=== PATIENT | male | born 1970 | race Caucasian/White ===

== ENCOUNTER 2016-07-16 05:41 | Inpatient (IN) | payer OTHER ==
[~2016-07-16] VITALS: Ht 190.5 cm; Wt 93.5 kg
[~2016-07-16 05:41] MED LIST: ASPI-825 PO; CARV3 PO; FOLI1CAP2 PO; FOLI1TAB15 PO; LISI-622 PO; SEVEC800 PO
[2016-07-16] MEDS ORDERED: ASPIRIN 81 MG EC TABLET PO ONE (06:30)
[2016-07-16] MEDS ORDERED: NITROGLYCERIN 2% (1 GM=INCH) PACKET TP ONE (06:30)
[2016-07-16] MEDS ORDERED: ASPIRIN 81 MG CHEWABLE TABLET PO ONE ×2 (06:45)
[2016-07-16 06:46] LABS: BASOPHILS # (AUTO) 0.03 K/uL (0.00-0.20); BASOPHILS % (AUTO) 0.5 % (0.0-2.0); EOSINOPHILS # (AUTO) 0.31 K/uL (0.00-0.70); EOSINOPHILS % (AUTO) 4.09 % (1.0-6.0); HEMATOCRIT 47.6 % (41-53); HEMOGLOBIN 15.4 g/dL (13.5-17.5); LYMPHOCYTES # (AUTO) 0.7 K/uL (1.0-4.8); LYMPHOCYTES % (AUTO) 9.5 % (22.0-44.0); MEAN CORPUSCULAR HEMOGLOBIN 31.7 pg (26.0-34.0); MEAN CORPUSCULAR HGB CONC 32.4 G/dL (31.0-37.0); MEAN CORPUSCULAR VOLUME 98 fL (80-100); MONOCYTES # (AUTO) 0.4 K/uL (0.1-1.0); PLATELET COUNT (AUTO) 125 K/uL (150-450); RED BLOOD CELL COUNT(AUTO) 4.86 MIL/uL (4.50-5.90); RED CELL DISTRIBUTION WIDTH 15.1 % (11.5-14.5); WHITE BLOOD COUNT (AUTO) 7.5 K/uL (4.5-11.0)
[2016-07-16 06:56] LABS: CREATININE 11.55 mg/dL (0.60-1.30); POTASSIUM 5.1 mmol/L (3.5-5.1)
[2016-07-16 07:01] LABS: ALBUMIN 3.6 g/dL (3.4-5.0); BILIRUBIN,TOTAL 0.4 mg/dL (0.1-1.0); TOTAL PROTEIN, SERUM 7.4 g/dL (6.4-8.2)
[2016-07-16] MEDS ORDERED: ZOLPIDEM TARTRATE 5 MG TABLET PO PRN (08:00)
[2016-07-16] MEDS ORDERED: ACETAMINOPHEN 325 MG TABLET PO PRN (08:00)
[2016-07-16] MEDS ORDERED: OxyCODONE HCL/ACETAMINOPHEN 5-325 MG TABLET PO PRN (08:00)
[2016-07-16] MEDS: HEPARIN SODIUM,PORCINE 5,000 UNITS/ML VIAL SQ SCH ×2 (08:38→19:06)
[2016-07-16] MEDS: PANTOPRAZOLE SODIUM 40 MG DR TABLET PO SCH (08:38)
[2016-07-16] MEDS ORDERED: LORazepam 2 MG/ML VIAL IVP ONE (11:15)
[2016-07-16] MEDS: ALPRAZolam 0.25 MG TABLET PO SCH ×2 (13:15→21:00)
[2016-07-16 14:06] VITALS: BP 134/83
[2016-07-16] MEDS ORDERED: MANNITOL 25%-12.5 GM/50 ML VIAL IVP PRN (15:30)
[2016-07-16] MEDS ORDERED: ALBUMIN HUMAN 25%-12.5GM/50ML IV BOTTLE IV PRN (15:30)
[2016-07-16 15:37] VITALS: BP 128/72
[2016-07-16] MEDS ORDERED: HEPARIN SODIUM,PORCINE 1,000 UNITS/ML VIAL IVP ONE (16:58)
[2016-07-16] MEDS: ATORVASTATIN CALCIUM 10 MG TABLET PO SCH (19:04)
[2016-07-16 19:39] VITALS: BP 130/71
[2016-07-16] MEDS: CARVEDILOL 3.125 MG TABLET PO SCH (20:58)
[2016-07-16 23:37] VITALS: BP 113/66
[2016-07-17] VITALS (7 sets, daily range): BP systolic 113–145; BP diastolic 62–83
[2016-07-17] MEDS: HEPARIN SODIUM,PORCINE 5,000 UNITS/ML VIAL SQ SCH ×3 (00:42→17:13)
[2016-07-17 06:29] LABS: BASOPHILS % (AUTO) 0.6 % (0.0-2.0); EOSINOPHILS % (AUTO) 5.6 % (1.0-6.0); HEMATOCRIT 49.2 % (41-53); HEMOGLOBIN 15.4 g/dL (13.5-17.5); LYMPHOCYTES # (AUTO) 1.1 K/uL (1.0-4.8); LYMPHOCYTES % (AUTO) 20.1 % (22.0-44.0); MEAN CORPUSCULAR HEMOGLOBIN 31.1 pg (26.0-34.0); MEAN CORPUSCULAR HGB CONC 31.4 G/dL (31.0-37.0); MEAN CORPUSCULAR VOLUME 99 fL (80-100); MONOCYTES # (AUTO) 0.5 K/uL (0.1-1.0); MONOCYTES % (AUTO) 8.3 % (2.0-9.0); NEUTROPHILS # (AUTO) 3.7 K/uL (1.8-7.7); NEUTROPHILS % (AUTO) 65.4 % (40.0-70.0); PLATELET COUNT (AUTO) 116 K/uL (150-450); RED BLOOD CELL COUNT(AUTO) 4.96 MIL/uL (4.50-5.90); RED CELL DISTRIBUTION WIDTH 15.5 % (11.5-14.5); WHITE BLOOD COUNT (AUTO) 5.6 K/uL (4.5-11.0)
[2016-07-17 07:33] LABS: ALBUMIN 3.3 g/dL (3.4-5.0); BILIRUBIN,TOTAL 0.5 mg/dL (0.1-1.0); CALCIUM, TOTAL 8.3 mg/dL (8.8-10.5); CREATININE 8.76 mg/dL (0.60-1.30); MAGNESIUM 2.4 mg/dL (1.80-2.40); POTASSIUM 5.1 mmol/L (3.5-5.1)
[2016-07-17] MEDS ORDERED: REGADENOSON 0.4 MG/5 ML PF SYRINGE IVP ONE ×2 (08:58→16:56)
[2016-07-17] MEDS ORDERED: SESTAMIBI TC99M/UD ISOTOPE 1 EA INJ INJ ONE ×2 (09:00→11:00)
[2016-07-17] MEDS: PANTOPRAZOLE SODIUM 40 MG DR TABLET PO SCH (11:17)
[2016-07-17] MEDS: ASPIRIN 81 MG CHEWABLE TABLET PO SCH (11:17)
[2016-07-17] MEDS: ATORVASTATIN CALCIUM 10 MG TABLET PO SCH (11:18)
[2016-07-17] MEDS: LISINOPRIL 5 MG TABLET PO SCH (11:18)
[2016-07-17] MEDS: SEVELAMER CARBONATE 800 MG TABLET PO SCH (11:18)
[2016-07-17] MEDS: CARVEDILOL 3.125 MG TABLET PO SCH ×2 (11:18→21:38)
[2016-07-17] MEDS: FOLIC ACID 1 MG TABLET PO SCH (11:18)
[2016-07-17] MEDS: ALPRAZolam 0.25 MG TABLET PO SCH ×2 (11:18→21:38)
[2016-07-17] MEDS: VITAMIN B COMP/VIT C/FOLIC ACID CAPSULE PO SCH (13:32)
[2016-07-17] MEDS ORDERED: AmLODIPine BESYLATE 2.5 MG TABLET PO SCH (21:00)
[2016-07-18 00:15] VITALS: BP 134/73
[2016-07-18] MEDS: HEPARIN SODIUM,PORCINE 5,000 UNITS/ML VIAL SQ SCH ×2 (00:21→08:00)
[2016-07-18 04:01] VITALS: BP 119/61
[2016-07-18 06:10] LABS: BASOPHILS # (AUTO) 0.04 K/uL (0.00-0.20); BASOPHILS % (AUTO) 0.6 % (0.0-2.0); EOSINOPHILS # (AUTO) 0.33 K/uL (0.00-0.70); EOSINOPHILS % (AUTO) 4.88 % (1.0-6.0); HEMATOCRIT 50.3 % (41-53); LYMPHOCYTES # (AUTO) 1.6 K/uL (1.0-4.8); LYMPHOCYTES % (AUTO) 22.7 % (22.0-44.0); MEAN CORPUSCULAR HEMOGLOBIN 31.5 pg (26.0-34.0); MEAN CORPUSCULAR HGB CONC 31.8 G/dL (31.0-37.0); MEAN CORPUSCULAR VOLUME 99 fL (80-100); MONOCYTES # (AUTO) 0.5 K/uL (0.1-1.0); MONOCYTES % (AUTO) 7.6 % (2.0-9.0); NEUTROPHILS # (AUTO) 4.4 K/uL (1.8-7.7); NEUTROPHILS % (AUTO) 64.2 % (40.0-70.0); PLATELET COUNT (AUTO) 130 K/uL (150-450); RED BLOOD CELL COUNT(AUTO) 5.09 MIL/uL (4.50-5.90); RED CELL DISTRIBUTION WIDTH 16.4 % (11.5-14.5); WHITE BLOOD COUNT (AUTO) 6.9 K/uL (4.5-11.0)
[2016-07-18 06:38] LABS: ALBUMIN 3.5 g/dL (3.4-5.0); BILIRUBIN,TOTAL 0.5 mg/dL (0.1-1.0); CALCIUM, TOTAL 8.5 mg/dL (8.8-10.5); CREATININE 10.97 mg/dL (0.60-1.30); MAGNESIUM 2.5 mg/dL (1.80-2.40); POTASSIUM 5.6 mmol/L (3.5-5.1); TOTAL PROTEIN, SERUM 7.4 g/dL (6.4-8.2)
[2016-07-18 07:25] VITALS: BP 131/67
[2016-07-18] MEDS: ALPRAZolam 0.25 MG TABLET PO SCH (09:39)
[2016-07-18] MEDS: SEVELAMER CARBONATE 800 MG TABLET PO SCH (09:39)
[2016-07-18] MEDS ORDERED: MANNITOL 25%-12.5 GM/50 ML VIAL IVP PRN (09:45)
[2016-07-18] MEDS ORDERED: ALBUMIN HUMAN 25%-12.5GM/50ML IV BOTTLE IV PRN (09:45)
[2016-07-18 10:49] VITALS: BP 150/78
[2016-07-18] MEDS: FOLIC ACID 1 MG TABLET PO SCH (12:47)
[2016-07-18] MEDS: LISINOPRIL 5 MG TABLET PO SCH (12:47)
[2016-07-18] MEDS: PANTOPRAZOLE SODIUM 40 MG DR TABLET PO SCH (12:47)
[2016-07-18] MEDS: VITAMIN B COMP/VIT C/FOLIC ACID CAPSULE PO SCH (12:47)
[2016-07-18] MEDS: ATORVASTATIN CALCIUM 10 MG TABLET PO SCH (12:47)
[2016-07-18] MEDS: CARVEDILOL 3.125 MG TABLET PO SCH (12:48)
[2016-07-18] MEDS: ASPIRIN 81 MG CHEWABLE TABLET PO SCH (12:48)
[2016-07-18] MEDS ORDERED: AMLO2.5T PO (13:49)
[2016-07-18] MEDS ORDERED: LORA0.5T2 PO (13:50)
[2016-07-18] MEDS ORDERED: SODIUM CHLORIDE 0.9% 2,000 ML IV ONE (14:21)
[2016-07-18] MEDS ORDERED: AmLODIPine BESYLATE 5 MG TABLET PO SCH (21:00)
== END 2016-07-18 16:06 | disposition home or self-care (01) | DRG 198 ==
LOC: EMS 05:42 → 5N 12:53
PROVIDERS: ADMIT Hospitalist; ATTEND Hospitalist
PROC: 5A1D00Z (ICD-10-PCS; principal; 2016-07-16)
DX: I25.110 Atherosclerotic heart disease of native coronary artery with unstable angina pectoris (principal); I50.43 Acute on chronic combined systolic (congestive) and diastolic (congestive) heart failure; N18.6 End stage renal disease; I42.9 Cardiomyopathy, unspecified; I13.2 Hypertensive heart and chronic kidney disease with heart failure and with stage 5 chronic kidney disease, or end stage renal disease; I34.0 Nonrheumatic mitral (valve) insufficiency; I35.1 Nonrheumatic aortic (valve) insufficiency; E78.5 Hyperlipidemia, unspecified; K21.9 Gastro-esophageal reflux disease without esophagitis; F41.9 Anxiety disorder, unspecified; F84.5 Asperger's syndrome; Z99.2 Dependence on renal dialysis; Z79.82 Long term (current) use of aspirin; Z79.899 Other long term (current) drug therapy; Z98.890 Other specified postprocedural states
CPT/HCPCS: 78452; 83735; 87340; 90935; 93005; 93017; 93306; 96374; 99285; A9500; J1644; J2060; J2785; J7030